=== PATIENT | male | born 1950 | race African-American/Black ===

== ENCOUNTER 2019-05-19 11:24 | Emergency (ER) | payer OTHER ==
--- NOTE | 2019-05-19 11:42 | PHYS DOC ---
Adult General Chief Complaint Chief Complaint: DIZZY/LIGHT HEADED HPI HPI Patient is a 69 year old female who presents with states he is recently getting over a upper respiratory infection and states he is feeling much better. He states that today while he was at work at [employer] morning he began feeling dizzy at 10:30. He states the dizziness increases with movement. He states in the past he was hypertensive and on medication but they had recently taken off of that. He states this morning at 7:[address] the sidewalk trying to do ice removal and he slipped and he fell catching himself with his right arm. He states that he has some right wrist pain and forearm pain. He rates pain a 3 out of 10 and states is mostly with movement. States that he has been drinking plenty of Gatorade and water. Patient denies chest pain, abdominal pain, nausea, vomiting, shortness of air, diarrhea, fever, headache, numbness or tingling, weaknesses. Review of Systems Review of Systems Musculoskeletal: Right forearm and wrist. Denies back pain or joint pain [] Neurologic: Dizziness. Denies headache, focal weakness or sensory changes [] All other systems were reviewed and found to be within normal limits, except as documented in this note. Current Medications Current Medications Current Medications Medications (Trade) Dose Ordered Sig/Sylwia Start Time Stop Time Status Last Admin Dose Admin Meclizine HCl (Antivert) 25 mg 1X ONCE 05/19/19 11:45 05/19/19 11:46 DC 05/19/19 12:06 25 MG Allergies Allergies Allergies Coded Allergies Type Severity Reaction Last Updated Verified No Known Drug Allergies 05/19/19 No Physical Exam Physical Exam Constitutional: Well developed, well nourished, no acute distress, non-toxic appearance. [] HENT: Normocephalic, atraumatic, bilateral external ears normal, oropharynx moist, no oral exudates, nose normal. [] Eyes: PERRLA, EOMI, conjunctiva normal, no discharge. Slight nystagmus. [] Neck: Normal range of motion, no tenderness, supple, no stridor. [] Cardiovascular:Heart rate regular rhythm, no murmur [] Lungs & Thorax: Bilateral breath sounds clear to auscultation [] Abdomen: Bowel sounds normal, soft, no tenderness, no masses, no pulsatile masses. [] Skin: Warm, dry, no erythema, no rash. [] Back: No tenderness, no CVA tenderness. [] Extremities: No tenderness, no cyanosis, no clubbing, ROM intact, no edema. [] Neurologic: Alert and oriented X 3, normal motor function, normal sensory function, no focal deficits noted. [] Psychologic: Affect normal, judgement normal, mood normal. [] Current Patient Data Vital Signs Vital Signs Date Time Temp Pulse Resp B/P (MAP) Pulse Ox O2 Delivery O2 Flow Rate FiO2 05/19/19 11:24 98.2 67 18 240/104 (149) 98 Room Air 98.2 Lab Values Laboratory Tests Test 05/19/19 11:52 White Blood Count 4.1 x10^3/uL (4.0-11.0) Red Blood Count 4.42 x10^6/uL (4.30-5.70) Hemoglobin 13.8 g/dL (13.0-17.5) Hematocrit 40.7 % (39.0-53.0) Mean Corpuscular Volume 92 fL (79-100) Mean Corpuscular Hemoglobin 31 pg (25-35) Mean Corpuscular Hemoglobin Concent 34 g/dL (31-37) Red Cell Distribution Width 12.5 % (11.5-14.5) Platelet Count 174 x10^3/uL (140-400) Neutrophils (%) (Auto) 49 % (31-73) Lymphocytes (%) (Auto) 36 % (24-48) Monocytes (%) (Auto) 11 % (0-9) H Eosinophils (%) (Auto) 3 % (0-3) Basophils (%) (Auto) 1 % (0-3) Neutrophils # (Auto) 2.0 x10^3/uL (1.8-7.7) Lymphocytes # (Auto) 1.5 x10^3/uL (1.0-4.8) Monocytes # (Auto) 0.4 x10^3/uL (0.0-1.1) Eosinophils # (Auto) 0.1 x10^3/uL (0.0-0.7) Basophils # (Auto) 0.1 x10^3/uL (0.0-0.2) Prothrombin Time 13.1 SEC (11.7-14.0) Prothrombin Time INR 1.0 (0.8-1.1) Sodium Level 138 mmol/L (136-145) Potassium Level 4.4 mmol/L (3.5-5.1) Chloride Level 104 mmol/L (98-107) Carbon Dioxide Level 27 mmol/L (21-32) Anion Gap 7 (6-14) Blood Urea Nitrogen 15 mg/dL (8-26) Creatinine 1.3 mg/dL (0.7-1.3) Estimated GFR (Cockcroft-Gault) 65.8 BUN/Creatinine Ratio 12 (6-20) Glucose Level 112 mg/dL (70-99) H Calcium Level 9.4 mg/dL (8.5-10.1) Total Bilirubin 0.3 mg/dL (0.2-1.0) Aspartate Amino Transferase (AST) 23 U/L (15-37) Alanine Aminotransferase (ALT) 31 U/L (16-63) Alkaline Phosphatase 92 U/L (46-116) Troponin I Quantitative < 0.017 ng/mL (0.000-0.055) Total Protein 7.0 g/dL (6.4-8.2) Albumin 3.9 g/dL (3.4-5.0) Albumin/Globulin Ratio 1.3 (1.0-1.7) Laboratory Tests 05/19/19 11:52 Laboratory Tests 05/19/19 11:52 EKG EKG Sinus Rhythm and no STEMI[] Interpretation Time: [address] Kinsey Radiology/Procedures Radiology/Procedures [] Impressions: [facility] [address] [place] [address] IMAGING REPORT Signed PATIENT: MARY ANN [facility]URNETTE [facility] [id number] : 1950 LOCATION: ER AGE: 69 SEX: M EXAM STATUS: REG ER ORD. PHYSICIAN: CARLOS COVINGTON APRN REASON: dizziness, recent URI PROCEDURE: PORTABLE CHEST 1V EXAM: CHEST 1 VIEW History: Dizziness COMPARISON: 07/23/2011 TECHNIQUE: Single portable radiograph of the chest FINDINGS: The cardiac silhouette is unremarkable. The lungs are clear bilaterally. The costophrenic sulci are clear and well demarcated. IMPRESSION: No radiographic evidence of an acute cardiopulmonary process. Electronically signed by: Chad Rueda MD (05/19/2019 12:12 PM) [id number] DICTATED and SIGNED BY: CHAD RUEDA MD DATE: 05/19/19 1212 [facility] [address] [place] [address] IMAGING REPORT Signed [facility] [id number] : 1950 LOCATION: ER AGE: 69 SEX: M EXAM STATUS: REG ER ORD. PHYSICIAN: CARLOS COVINGTON APRN REASON: fall. right forearm pain PROCEDURE: FOREARM RIGHT EXAM: Right forearm, 2 views; right wrist, 3 views. HISTORY: Fall. Pain. COMPARISON: None. FINDINGS: 2 views of the right forearm and 3 views of the right wrist are obtained. There is no acute fracture, dislocation or subluxation. There is mild enthesopathy along the triceps insertion. No elbow effusion is seen. IMPRESSION: No acute osseous finding. Electronically signed by: Ana Oseguera MD (05/19/2019 12:11 PM) [id number] DICTATED and SIGNED BY: ANA OSEGUERA MD DATE: 05/19/19 1211 [facility] [address] [facility] [place] [address] IMAGING REPORT Signed PATIENT: MARY ANN BURNETTE [facility]: [id number] : 1950 LOCATION: ER AGE: 69 SEX: M EXAM STATUS: PRE ER ORD. PHYSICIAN: CARLOS COVINGTON APRN REASON: DIZZINESS PROCEDURE: CT HEAD WO CONTRAST EXAM: CT Head without IV contrast INDICATION: Dizziness TECHNIQUE: Multi-detector row CT images were obtained of the head without the use of IV contrast. All CT scans performed at this facility utilize dose optimization techniques as appropriate to the exam, including the following: Automated exposure control and adjustment of the mA and/or KV according to patient size (this includes techniques or standardized protocols for targeted exams where dose is indication/reason for exam). DLP 1167.3 mGycm COMPARISON: None FINDINGS: BRAIN PARENCHYMA: No evidence of acute intraparenchymal hemorrhage or infarct. No abnormal parenchymal density or mass. VENTRICLES & EXTRA-AXIAL SPACES: Ventricles are within normal limits. Basilar cisterns are patent. No pathologic extra-axial fluid collection or mass. ORBITS: Orbital contents are unremarkable. SINUSES: Visualized paranasal sinuses and mastoid air cells are clear. OSSEOUS & SOFT TISSUES: Calvarium and skull base are intact. IMPRESSION: Normal CT of the head without contrast. Electronically signed by: Antoinette Snell MD (05/19/2019 12:02 PM) [facility] DICTATED and SIGNED BY: ANTOINETTE SNELL MD DATE: 05/19/19 1202 [facility] [address] [place] [address] IMAGING REPORT Signed PATIENT: MARY ANN BURNETTE [facility]: [id number] : 1950 LOCATION: ER AGE: 69 SEX: M EXAM STATUS: REG ER ORD. PHYSICIAN: CALROS COVINGTON APRN REASON: fall. right wrist pain PROCEDURE: WRIST 3V RIGHT EXAM: Right forearm, 2 views; right wrist, 3 views. HISTORY: Fall. Pain. COMPARISON: None. FINDINGS: 2 views of the right forearm and 3 views of the right wrist are obtained. There is no acute fracture, dislocation or subluxation. There is mild enthesopathy along the triceps insertion. No elbow effusion is seen. IMPRESSION: No acute osseous finding. Electronically signed by: Ana Oseguera MD (05/19/2019 12:11 PM) [place] [id number] DICTATED and SIGNED BY: ANA OSEGUERA MD DATE: 05/19/19 1211 Course & Med Decision Making Course & Med Decision Making Patient denies any head or neck pain or back pain. No pain is elicited with palpation to the cervical spine, thoracic spine, lumbar spine spine. Alert and oriented. Speaks in full clear sentences. Follows all commands appropriately. Lungs are clear to auscultation in all lobes. Patient is hypertensive in the 200s over 100s. No peripheral edema. No swelling or tenderness to the right arm with palpation. Radial pulses are present. Skin pink warm and dry. Patient has full range of motion of the elbow and of the wrist. Patient can wiggle his fingers. Orthostatics are negative. Patient states when he looks from [id number] or goes from laying to sitting he feels the dizziness. He states when he is just laying there talking to me he does not dizzy. Patient was able to stand on his own out falling. PERRLA. Slight nystagmus. Full range of motion of the neck and in his back. Blood work unremarkable. Blood pressure has come down in the 173/84. Patient got up and walked in the early and he is steady on his feet with a steady gait. He states he is still having some dizziness when he moves his head. Dragon Disclaimer Dragon Disclaimer This electronic medical record was generated, in whole or in part, using a voice recognition dictation system. NIHSS Stroke Scale NIH Stroke Scale: NIH Stroke Scale Response (Comments) Value Level of Consciousness: 0 Alert/Responsive 0 LOC Questions: 0 Answers both correctly 0 LOC Commands: 0 Performs both tasks 0 Best Gaze: 0 Normal 0 Visual: 0 No visual loss 0 Facial Palsy: 0 Normal, symmetrical 0 Motor - Left Arm 0 No drift 0 Motor - Right Arm 0 No drift 0 Motor - Left Leg 0 No drift 0 Motor: Right Leg 0 No drift 0 Limb Ataxia: 0 Absent 0 Sensory: 0 No loss 0 Best Language: 0 Normal 0 Dysathria: 0 Normal 0 Extinction and Inattention: 0 Normal 0 Total 0 Departure Departure Impression: Primary Impression: Dizziness Additional Impression: Fall Disposition: 01 HOME, SELF-CARE Condition: STABLE Patient Instructions: Vertigo Additional Instructions: Follow-up with your primary care provider. You need to be on Blood Pressure medications. Drink plenty of fluids. Take medication as prescribed. Scripts Ondansetron (ONDANSETRON ODT) 4 Mg Tab.rapdis 1 TAB PO PRN Q6-8HRS, #16 TAB Prov: CARLOS COVINGTON [employer] 05/19/19 Meclizine Hcl (MECLIZINE HCL) 25 Mg Tablet 1 TAB PO TID, #21 TAB Prov: CARLOS COVINGTON [employer] 05/19/19 Problem Qualifiers Additional Impression: Fall Encounter type: initial encounter Qualified Codes: W19.XXXA - Unspecified fall, initial encounter CARLOS COVINGTON [employer] May 19, 2019 11:42
[2019-05-19] MEDS ORDERED: MECLIZINE HCL 12.5 MG TABLET. PO ONE (11:45)
[2019-05-19 12:05] LABS: BASO # 0.1 x10^3/uL (0.0-0.2); BASO % 1 % (0-3); EOS # 0.1 x10^3/uL (0.0-0.7); EOS % 3 % (0-3); HEMATOCRIT 40.7 % (39.0-53.0); HEMOGLOBIN 13.8 g/dL (13.0-17.5); LYMPH # 1.5 x10^3/uL (1.0-4.8); LYMPH % 36 % (24-48); MEAN CORPUSCULAR HEMOGLOBIN 31 pg (25-35); MEAN CORPUSCULAR HGB CONC 34 g/dL (31-37); MEAN CORPUSCULAR VOLUME 92 fL (79-100); MONO # 0.4 x10^3/uL (0.0-1.1); MONO % 11 % (0-9); NEUT % 49 % (31-73); PLATELET COUNT 174 x10^3/uL (140-400); RED BLOOD COUNT 4.42 x10^6/uL (4.30-5.70); RED CELL DISTRIBUTION WIDTH 12.5 % (11.5-14.5); WHITE BLOOD COUNT 4.1 x10^3/uL (4.0-11.0)
--- NOTE | 2019-05-19 12:05 | RAD ---
EXAM: CT Head without IV contrast INDICATION: Dizziness TECHNIQUE: Multi-detector row CT images were obtained of the head without the use of IV contrast. All CT scans performed at this facility utilize dose optimization techniques as appropriate to the exam, including the following: Automated exposure control and adjustment of the mA and/or KV according to patient size (this includes techniques or standardized protocols for targeted exams where dose is indication/reason for exam). DLP 1167.3 mGycm COMPARISON: None FINDINGS: BRAIN PARENCHYMA: No evidence of acute intraparenchymal hemorrhage or infarct. No abnormal parenchymal density or mass. VENTRICLES & EXTRA-AXIAL SPACES: Ventricles are within normal limits. Basilar cisterns are patent. No pathologic extra-axial fluid collection or mass. ORBITS: Orbital contents are unremarkable. SINUSES: Visualized paranasal sinuses and mastoid air cells are clear. OSSEOUS & SOFT TISSUES: Calvarium and skull base are intact. IMPRESSION: Normal CT of the head without contrast. Electronically signed by: Saran Snell MD (05/19/2019 12:02 PM) [facility]
[2019-05-19 12:13] LABS: CALCIUM 9.4 mg/dL (8.5-10.1); CREATININE 1.3 mg/dL (0.7-1.3); GFR 65.8; POTASSIUM 4.4 mmol/L (3.5-5.1)
--- NOTE | 2019-05-19 12:14 | RAD ---
EXAM: Right forearm, 2 views; right wrist, 3 views. HISTORY: Fall. Pain. COMPARISON: None. FINDINGS: 2 views of the right forearm and 3 views of the right wrist are obtained. There is no acute fracture, dislocation or subluxation. There is mild enthesopathy along the triceps insertion. No elbow effusion is seen. IMPRESSION: No acute osseous finding. Electronically signed by: Ana Torres MD (05/19/2019 12:11 PM) [facility]
--- NOTE | 2019-05-19 12:15 | RAD ---
EXAM: CHEST 1 VIEW History: Dizziness COMPARISON: 07/23/2011 TECHNIQUE: Single portable radiograph of the chest FINDINGS: The cardiac silhouette is unremarkable. The lungs are clear bilaterally. The costophrenic sulci are clear and well demarcated. IMPRESSION: No radiographic evidence of an acute cardiopulmonary process. Electronically signed by: Chad Rueda MD (05/19/2019 12:12 PM) [id number]
[2019-05-19 12:19] LABS: ALBUMIN 3.9 g/dL (3.4-5.0); ALBUMIN/GLOBULIN RATIO 1.3 (1.0-1.7); TOTAL BILIRUBIN 0.3 mg/dL (0.2-1.0)
[2019-05-19 12:21] VITALS: BP 173/84
[2019-05-19 13:02] LABS: PROTHROMBIN TIME PATIENT 13.1 SEC (11.7-14.0)
[2019-05-19] MEDS ORDERED: MECL-75 PO (13:12)
[2019-05-19] MEDS ORDERED: ONDA4TAB12 PO (13:12)
--- NOTE | 2019-05-19 13:39 | EKG ---
[facility] [address] [place] [address] Test Date: 2019-05-19 Test Time: 11:39:25 Pat Name: MARY ANN BURNETTE Department: Room: Gender: M Travel Manager: : 1950 Requested By: CARLOS COVINGTON Order Number: [id number] Reading MD: Measurements Intervals [place] Rate: 56 P: 0 GA: 156 QRS: 1 QRSD: 100 T: 2 QT: 412 QTc: 400 Interpretive Statements SINUS RHYTHM QRS(T) CONTOUR ABNORMALITY CONSIDER ANTEROSEPTAL MYOCARDIAL DAMAGE POSSIBLY ABNORMAL ECG RI6.01 No previous ECG available for comparison
== END 2019-05-19 13:36 | disposition home or self-care (01) ==
LOC: ER 11:24
DX: R42 Dizziness and giddiness (principal); M25.531 Pain in right wrist; M79.631 Pain in right forearm; G89.11 Acute pain due to trauma; W01.0XXA Fall on same level from slipping, tripping and stumbling without subsequent striking against object, initial encounter; Y93.89 Activity, other specified; Y92.89 Other specified places as the place of occurrence of the external cause; Y99.8 Other external cause status
CPT/HCPCS: 36415; 70450; 71045; 73090; 73110; 80053; 84484; 85025; 85610; 93005; 99285; J8597